=== PATIENT | male | born 1970 | race Caucasian/White ===

== ENCOUNTER 2018-06-27 21:29 | Emergency (ER) | payer SELFPAY | END 2018-06-28 00:46 | disposition left against medical advice (07) | LOC: E/R 21:29 | DX: Z53.21 Procedure and treatment not carried out due to patient leaving prior to being seen by health care provider (principal) ==

== ENCOUNTER 2018-07-01 14:19 | Emergency (ER) | payer OTHER ==
[2018-07-01 16:12] LABS: URINE BLOOD (Dip) POC Negative (NEGATIVE); URINE GLUCOSE (Dip) POC Negative (NEGATIVE); URINE KETONES (Dip) POC Negative (NEGATIVE); URINE LEUKOCYTE EST (Dip) POC Negative (NEGATIVE); URINE NITRITE (Dip) POC Negative (NEGATIVE); URINE TOTAL PROTEIN POC Negative (NEGATIVE)
[2018-07-01 16:50] LABS: ADD MAN DIFF? NO
[2018-07-01 16:53] LABS: ABNORMAL IP MESSAGE 1; BASOPHILS % 0.8 % (0.0-2.0); EOSINOPHILS % 0.6 % (0.0-7.0); HEMATOCRIT 36.1 % (42.0-52.0); HEMOGLOBIN 12.1 g/dl (14.0-18.0); LYMPHOCYTES # 1.2 10^3/ul (0.8-2.9); LYMPHOCYTES % 23.4 % (15.0-51.0); MEAN CORPUSCULAR HGB CONC 33.5 g/dl (32.0-37.0); MEAN CORPUSCULAR VOLUME 92.6 fl (82.0-101.0); MEAN PLATELET VOLUME 10.6 fl (7.4-10.4); MONOCYTE # 0.4 10^3/ul (0.3-0.9); MONOCYTES % 8.4 % (0.0-11.0); NEUTROPHIL # 3.3 10^3/ul (1.6-7.5); PLATELET COUNT 89 10^3/UL (140-415); POSITIVE DIFF @See below; RED CELL DISTRIBUTION WIDTH 14.3 % (11.5-14.5)
[2018-07-01 17:17] LABS: ALANINE AMINOTRANSFERASE 129 IU/L (13-69); ALBUMIN 3.9 g/dl (3.3-4.9); ALBUMIN/GLOBULIN RATIO 1.21; ALKALINE PHOSPHATASE 160 IU/L (42-121); ANION GAP 13 (5-13); ASPARTATE AMINO TRANSFERASE 320 IU/L (15-46); BILIRUBIN,INDIRECT 0.6 mg/dl (0-1.1); BILIRUBIN,TOTAL 0.6 mg/dl (0.2-1.3); BLOOD UREA NITROGEN 4 mg/dl (7-20); CALCIUM 8.8 mg/dl (8.4-10.2); CARBON DIOXIDE 24 mmol/L (21-31); CHLORIDE 105 mmol/L (97-110); CREATININE 0.63 mg/dl (0.61-1.24); Estimated GFR > 60 mL/min (>60); GLUCOSE 117 mg/dl (70-220); POTASSIUM 3.4 mmol/L (3.5-5.1); SODIUM 142 mmol/L (135-144); TOTAL PROTEIN 7.1 g/dl (6.1-8.1)
[2018-07-01 17:19] LABS: LIPASE < 10 U/L (23-300)
[2018-07-01] MEDS: HYDROmorphONE 0.5 MG/0.5 ML SYG IM (17:54)
[2018-07-01] MEDS: KETOROLAC 15 MG INJ IM (18:00)
== END 2018-07-01 18:05 | disposition home or self-care (01) ==
LOC: E/R 14:19
DX: F10.920 Alcohol use, unspecified with intoxication, uncomplicated (principal); K70.10 Alcoholic hepatitis without ascites; G89.4 Chronic pain syndrome; F17.210 Nicotine dependence, cigarettes, uncomplicated
CPT/HCPCS: 36415; 80053; 80307; 81003; 83690; 85025; 96372; 99284-25

== ENCOUNTER 2018-07-01 19:44 | Emergency (ER) | payer OTHER ==
[2018-07-02] MEDS: LORAZEPAM 1 MG TAB PO ×2 (08:29→10:47)
[2018-07-02 13:46] LABS: AMPHETAMINE/METHAMPHETAMINE NEGATIVE (NEGATIVE); BARBITURATES NEGATIVE (NEGATIVE); BENZODIAZEPINES NEGATIVE (NEGATIVE); CANNABINOIDS NEGATIVE (NEGATIVE); COCAINE NEGATIVE (NEGATIVE); OPIATES NEGATIVE (NEGATIVE)
[2018-07-02] MEDS: LORAZEPAM 2 MG INJ IM (13:57)
[2018-07-02 16:25] LABS: ETHANOL < 10.0 mg/dl (0-0)
== END 2018-07-03 04:45 ==
LOC: E/R 07-03 04:45
DX: F10.920 Alcohol use, unspecified with intoxication, uncomplicated (principal); F90.9 Attention-deficit hyperactivity disorder, unspecified type; Z87.891 Personal history of nicotine dependence
CPT/HCPCS: 80307; 96372; 99285-25